=== PATIENT | female | born 1990 | race Caucasian/White ===

== ENCOUNTER 2020-03-22 15:08 | Emergency (ER) | payer OTHER ==
[~2020-03-22] VITALS: Ht 160 cm; Wt 92.1 kg
[2020-03-22 15:11] VITALS: BP 126/94
--- NOTE | 2020-03-22 15:24 | NUR ---
AMBULATED TO BED 3
--- NOTE | 2020-03-22 15:25 | NUR ---
rena stevens at bedside evaluating pt.
[2020-03-22] MEDS ORDERED: NACL 0.9% 1,000 ML IV ONE (15:30)
--- NOTE | 2020-03-22 15:36 | NUR ---
REFERRED FROM URGENT CARE FOR ABDOMINAL PAIN, HEMATURIA, LEFT FLANK PAIN. C/O LEFT LOWER ABDOMINAL PAIN RADIATING TO LOWER BACK X 5 DAYS.PT AOX4, AFIBRILE, AMBULATORY WITH STEADY GAIT , PINK PALPEBRAL CONJUNCTIVA , ANICTERIC SCLERA , SCE , FLAT SOFT ABDOMEN. MED HX: DENIES
--- NOTE | 2020-03-22 15:58 | NUR ---
SHAUN AT BEDSIDE.
[2020-03-22 16:34] LABS: BASOPHILS % (AUTO) 0.6 % (0.0-2.0); EOSINOPHILS # (AUTO) 0.1 K/uL (0-0.4); EOSINOPHILS % (AUTO) 1.8 % (0.0-4.0); HEMATOCRIT 41.7 % (36-48); LYMPHOCYTES # (AUTO) 1.7 K/uL (2.5-16.5); LYMPHOCYTES % (AUTO) 24.1 % (20.5-51.1); MEAN CORPUSCULAR HEMOGLOBIN 29 pg (27-31); MEAN CORPUSCULAR HGB CONC 34 g/dL (33-37); MEAN CORPUSCULAR VOLUME 86.3 fL (80-94); MONOCYTES # (AUTO) 0.6 K/uL (0.8-1.0); NEUTROPHILS # (AUTO) 4.6 K/uL (1.8-7.7); NEUTROPHILS % (AUTO) 64.5 % (42.2-75.2); PLATELET COUNT (AUTO) 267 K/uL (140-450); RED BLOOD CELL COUNT(AUTO) 4.82 MIL/uL (4.20-5.40); RED CELL DISTRIBUTION WIDTH 13.5 % (11.6-13.7); WHITE BLOOD COUNT (AUTO) 7.1 K/uL (4.8-10.8)
[2020-03-22 16:41] LABS: APPEARANCE,URINE CLOUDY (CLEAR); BILIRUBIN,URINE 1+ (NEGATIVE); BLOOD, URINE 3+ (NEGATIVE); COLOR,URINE BROWN (YELLOW); LEUKOCYTE ESTERASE ,URINE NEGATIVE (NEGATIVE); NITRITE, URINE NEGATIVE (NEGATIVE); PH,URINE 5.5 (5.0-9.0); UGLUCOSE NEGATIVE (NEGATIVE)
[2020-03-22 16:54] LABS: RBC,URINE TOO NUMEROUS TO COUN /HPF (0-5)
[2020-03-22 17:03] LABS: ALBUMIN 3.9 g/dL (3.4-5.0); ANION GAP 17.5 (8-16); CARBON DIOXIDE 23.7 mmol/L (21-32); CREATININE 0.7 mg/dL (0.6-1.3); POTASSIUM 4.2 mmol/L (3.5-5.1); TOTAL BILIRUBIN 0.3 mg/dL (0.0-1.0)
--- NOTE | 2020-03-22 17:28 | NUR ---
JOSE MANUEL FELIX AT BEDSIDE REEVALUATING PT,
[2020-03-22] MEDS ORDERED: KETOROLAC 30 MG/ML VIAL IVP ONE (17:30)
[2020-03-22 17:38] VITALS: BP 126/88
--- NOTE | 2020-03-22 17:40 | NUR ---
Patient discharged with v/s stable. Written and verbal after care instructions given and explained regarding ovarian cyst. Patient alert, oriented and verbalized understanding of instructions. Ambulatory with steady gait. All questions addressed prior to discharge. ID band removed. Patient advised to follow up with PMD. Rx of naproxen given. Patient educated on indication of medication including possible reaction and side effects. Opportunity to ask questions provided and answered.
[2020-03-25 06:11] LABS: CHLAMYDIA TRACHOMATIS AMP DNA Negative (Negative)
== END 2020-03-22 17:40 | disposition home or self-care (01) ==
LOC: MED 15:08
DX: N83.202 Unspecified ovarian cyst, left side (principal); N80.0 Endometriosis of uterus; R73.9 Hyperglycemia, unspecified
CPT/HCPCS: 36415; 76830; 80053; 81001; 81025; 85025; 87086; 96361; 96374; 99284; J1885; Q0092; J7030

== ENCOUNTER 2020-05-18 22:36 | Emergency (ER) | payer OTHER ==
[~2020-05-18] VITALS: Ht 160 cm; Wt 88.5 kg
[2020-05-18 22:46] VITALS: BP 117/75
--- NOTE | 2020-05-18 22:51 | NUR ---
PT AMBULATED TO ER BED 7 W/ STEADY GAIT.
--- NOTE | 2020-05-18 23:00 | NUR ---
29 Y/O BIB SELF FOR C/O EARACHE X 3DAYS AGO PT DECRIBES IT "THROBBING" AND FURTHER STATES THAT SHE'S BEEN TAKING OTC MEDS FOR PAIN AND AMOXICILLIN SINCE LAST NIGHT, THIS MORNING AND EVENING PRIOR TO VISIT. REDNESS & SWELLING WAS OBSERVED ON AREA. NO DISCHARGE NOTED. SHE FURTHER STATES THAT SHES BEEN USING HOME REMEDIES TO TREAT AREA. VSS. MEDHX: DENIES ALLX: NKA
--- NOTE | 2020-05-18 23:12 | NUR ---
ER MD AT BEDSIDE EVALUATING PATIENT.
--- NOTE | 2020-05-18 23:14 | NUR ---
Moi trujillo in [facility] - 05/18/[address] at [address] Flores examining patient.
[2020-05-18] MEDS ORDERED: TETRACAINE HCL/PF 0.5% OPTH 4 ML BTL OP ONE (23:40)
--- NOTE | 2020-05-18 23:50 | NUR ---
ACCUCHECK DONE ORDERED RESULT READS 301. GAGE JIANG NOTIFIED.
--- NOTE | 2020-05-18 23:50 | NUR ---
Moi trujillo in ED - 05/18/20 at 2353 by CRISTOBAL ER MD AT BEDSIDE.
--- NOTE | 2020-05-18 23:52 | NUR ---
ERMD AT BEDSIDE.
[2020-05-19] MEDS ORDERED: IBUPROFEN 800 MG TAB PO ONE
--- NOTE | 2020-05-19 00:10 | NUR ---
PATIENT STATES "I JUST WANNA GO HOME I HAVE THE MEDICATION THERE AND I FEEL BETTER AFTER THE DROPS". REFUSED IBUPROFEN.
[2020-05-19 00:11] VITALS: BP 117/75
--- NOTE | 2020-05-19 00:11 | NUR ---
Patient discharged with v/s stable. Written and verbal after care instructions given and explained. Patient alert, oriented and verbalized understanding of instructions. Ambulatory with steady gait. All questions addressed prior to discharge. ID band removed. Patient advised to follow up with PMD. Rx of Metformin, Ciprodex & Ibuprofen given. Patient educated on indication of medication including possible reaction and side effects. Opportunity to ask questions provided and answered.
== END 2020-05-19 00:11 | disposition home or self-care (01) ==
LOC: MED 22:36
DX: H60.91 Unspecified otitis externa, right ear (principal); E11.65 Type 2 diabetes mellitus with hyperglycemia
CPT/HCPCS: 82948; 99283

== ENCOUNTER 2023-01-15 06:30 | Emergency (ER) | payer OTHER ==
[~2023-01-15] VITALS: Ht 162.6 cm; Wt 85.7 kg
[2023-01-15 06:45] VITALS: BP 126/79
--- NOTE | 2023-01-15 06:55 | NUR ---
PT TAKEN TO BED 5
--- NOTE | 2023-01-15 06:57 | NUR ---
Dr. Srinivasan examining patient.
[2023-01-15] MEDS ORDERED: COROTSOL OT (07:05)
[2023-01-15] MEDS ORDERED: LIDO15SO4 LEFT EAR (07:07)
--- NOTE | 2023-01-15 07:12 | NUR ---
Patient discharged with v/s stable. Written and verbal after care instructions given and explained. Patient alert, oriented and verbalized understanding of instructions. Ambulatory with steady gait. All questions addressed prior to discharge. ID band removed. Patient advised to follow up with PMD. Rx sent to preferred pharmacy. Patient educated on indication of medication including possible reaction and side effects. Opportunity to ask questions provided and answered.
[2023-01-15 07:13] VITALS: BP 126/79
== END 2023-01-15 07:12 | disposition home or self-care (01) ==
LOC: MED 06:30
DX: H60.93 Unspecified otitis externa, bilateral (principal); Z79.899 Other long term (current) drug therapy
CPT/HCPCS: 99283